=== PATIENT | male | born 1980 | race Hispanic/Latino ===

== ENCOUNTER 2020-11-26 21:41 | Emergency (ER) | payer SELFPAY ==
[2020-11-26] MEDS ORDERED: CEFTRIAXONE 1G VIAL ONE (22:07)
[2020-11-26] MEDS ORDERED: KETOROLAC 30MG VIAL (30MG/ML) ONE (22:07)
[2020-11-26] MEDS ORDERED: LIDOCAINE HCL-MPF 1% 2ML VIAL ONE (22:08)
== END 2020-11-26 22:28 | disposition home or self-care (01) ==
LOC: EDH 21:41
DX: L03.116 Cellulitis of left lower limb (principal)
CPT/HCPCS: 96372 ×2; 99284; J0696; J1885; J3490